=== PATIENT | male | born 1975 | race Two or more races ===

== ENCOUNTER 2021-03-30 22:51 | Emergency (ER) | payer SELFPAY ==
[~2021-03-30] VITALS: Ht 172.7 cm; Wt 77.1 kg
--- NOTE | 2021-03-30 23:07 | NUR ---
ALPHONSO FROM THE STREET. TO ER BED 15. PT IS SLEEPING BUT EASILY ARROUSABLE. NOT IN RESP DISTRESS. PT IS NON VERBAL AND COMMUNICATED BY GESTURES.. ACCORDING OT THE PARAMEDICS, PT WAS FOUND ALTERED AND WAS GIVEN NARCAN THAT ARROUSED HIM. WAS AT THE BEDSIDE FOR EVAL.AWAITING ORDERS
--- NOTE | 2021-03-31 01:23 | NUR ---
Ayanna euceda in [facility] - 03/31/21 at 0144 by JAGUAR PT'S AMBU;ATION TESTED. PT IS ON STEADY GAIT WITHOUT ASSIST
[2021-03-31] MEDS ORDERED: NALO4SPR NS (02:35)
--- NOTE | 2021-03-31 02:38 | NUR ---
pt alert, ox4 , responsive, ambulatory w. steady gaits. po intake tolerated well. no s/s of aspiration noted. reported feeling good and willin to leave. md made aware w/ an ordr for d/c. Patient discharged to home in stable condition. Written and verbal after care instructions given. Patient verbalizes understanding of instruction.
[2021-03-31 02:41] VITALS: BP 119/67
== END 2021-03-31 02:41 | disposition home or self-care (01) ==
LOC: ER 22:53 → EDBD 22:53 → ER 03-31 02:41
DX: T40.601A Poisoning by unspecified narcotics, accidental (unintentional), initial encounter (principal); Y92.89 Other specified places as the place of occurrence of the external cause